=== PATIENT | female | born 1990 | race Caucasian/White ===

== ENCOUNTER 2017-04-03 22:08 | Emergency (ER) | payer OTHER ==
[~2017-04-03] VITALS: Ht 170.1 cm; Wt 77.1 kg
[2017-04-04] MEDS ORDERED: CYCLOBENZAPRINE10 MG PO (01:43)
== END 2017-04-04 01:43 | disposition home or self-care (01) ==
LOC: ED 22:08
DX: S16.1XXA Strain of muscle, fascia and tendon at neck level, initial encounter (principal); V49.59XA Passenger injured in collision with other motor vehicles in traffic accident, initial encounter; Y93.89 Activity, other specified; Y92.488 Other paved roadways as the place of occurrence of the external cause; Y99.9 Unspecified external cause status